=== PATIENT | male | born 1955 | race Caucasian/White ===

== ENCOUNTER 2021-08-05 18:31 | Emergency (ER) | payer BC, OTHER ==
[2021-08-05 18:53] VITALS: BP 177/93; PULSE 74; TEMP 97; BMI 29.3
[2021-08-05] MEDS ORDERED: KETOROLAC TROMETHAMINE 30 MG/1 ML VIAL IM ONE (19:40)
[2021-08-05] MEDS ORDERED: KETOROLAC TROMETHAMINE 30 MG/1 ML VIAL ONE (19:43)
== END 2021-08-05 20:58 | disposition home or self-care (01) ==
LOC: JERFT 18:31 → JER 18:31 → JERFT 20:58
PROC: 3E023GC Introduction of Other Therapeutic Substance into Muscle, Percutaneous Approach (ICD-10-PCS; principal; 2021-08-05)
DX: R07.81 Pleurodynia (principal)
CPT/HCPCS: 71046-TC-FY; 71101-TC-LT-FY; 73060-TC-LT-FY; 99284-25